=== PATIENT | male | born 1970 | race Two or more races ===

== ENCOUNTER → 2025-03-15 10:30 | Outpatient (REF) | payer OTHER, SELFPAY | LOC: RCS 10:30 | PROVIDERS: ATTENDING PHYSICIAN Student in an Organized Health Care Education/Training Program; FAMILY PHYSICIAN Family Medicine | DX: I25.10 Atherosclerotic heart disease of native coronary artery without angina pectoris (principal) | CPT/HCPCS: 93017 ==